=== PATIENT | male | born 1995 | race Caucasian/White ===

== ENCOUNTER 2017-09-05 07:48 | Emergency (ER) | payer BC ==
[2017-09-05] MEDS ORDERED: Ketorolac 30 MG/ML SDV IVPUSH ONE (08:31)
--- NOTE | 2017-09-05 08:37 | EDM.PDOC ---
ED HPI GENERAL MEDICAL PROBLEM - General Chief Complaint: Lower Extremity Injury/Pain Stated Complaint: RIGHT FOOT PAIN Time Seen by Provider: 09/05/17 07:52 Source of Information: Reports: Patient History Limitations: Reports: No Limitations - History of Present Illness INITIAL COMMENTS - FREE TEXT/NARRATIVE: History of present illness: []Patient noted having symptoms of athlete's foot on his right foot on August 20. He used [id number] Tinactin [place] which did not help and went to a walk-in clinic on 28 August. At time he was started on Diflucan which she completed 1 week of treatment. His are worse now with redness, swelling and pain radiating up into his calf to behind his knee. He has had chills and has open lesions on his foot that are draining. Review of systems: As per history of present illness and below otherwise all systems reviewed and negative. Past medical history: As per history of present illness and as reviewed below otherwise noncontributory. Surgical history: As per history of present illness and as reviewed below otherwise noncontributory. Social history: No reported history of drug or alcohol abuse. Family history: As per history of present illness and as reviewed below otherwise noncontributory. Physical exam: General: Well developed, well nourished in NAD HEENT: Atraumatic, normocephalic, pupils reactive, negative for conjunctival pallor or scleral icterus, mucous membranes moist, throat clear, neck supple, nontender, trachea midline. Lungs: Clear to auscultation, breath sounds equal bilaterally, chest nontender. Heart: S1S2, regular, negative for clicks, rubs, or JVD. Abdomen: Soft, nondistended, nontender. Negative for masses or hepatosplenomegaly. Negative for costovertebral tenderness. Pelvis: Stable nontender. Genitourinary: Deferred. Rectal: Deferred. Extremities: Right foot erythematous, edematous with multiple macerated areas that are crusted is brisk capillary refill, positive calf pain radiating to behind the knee. Neurovascular unremarkable. Neuro: Awake, alert, oriented. Cranial nerves II through XII unremarkable. Cerebellum unremarkable. Motor and sensory unremarkable throughout. Exam nonfocal. Diagnostics: []CBC normal, blood cultures, Doppler ultrasound negative for DVT Therapeutics: []Vancomycin, Toradol Impression: []Cellulitis right foot Plan: []Warm soaks, Levaquin as directed, Motrin for pain follow-up with primary care return if symptoms worsen or change Definitive disposition and diagnosis as appropriate pending reevaluation and review of above. Right Feet Pain Score (Numeric/FACES): 7 - Related Data Allergies Allergy/AdvReac Type Severity Reaction Status Date / Time Penicillins Allergy Airway Verified 09/05/17 08:03 Tightness Home Meds: Home Meds Levofloxacin [Levaquin] 500 mg PO DAILY #7 tab 09/05/17 [Rx] Non-Formulary Medication [NF Drug] 1 tab PO DAILY 09/05/17 [History] Past Medical History - Past Health History Medical/Surgical History: Denies Medical/Surgical History Social & Family History - Tobacco Use Smoking Status *Q: Current Every Day Smoker Years of Tobacco use: 10 Packs/Tins Daily: 1 - Caffeine Use Caffeine Use: Reports: Coffee, Energy Drinks - Recreational Drug Use Recreational Drug Use: No Review of Systems - Review of Systems Review Of Systems: ROS reveals no pertinent complaints other than HPI. ED EXAM, GENERAL - Physical Exam Exam: See Below (History of present illness) Course - Vital Signs Last Recorded V/S: Last Vital Signs Temp 97.9 F 09/05/17 08:01 Pulse 76 09/05/17 08:01 Resp 16 09/05/17 08:01 BP 130/88 09/05/17 08:01 Pulse Ox 99 09/05/17 08:01 - Orders/Labs/Meds Orders: Active Orders 24 hr Category Date Time Status CULTURE BLOOD [BC] Stat Lab 09/05/17 08:37 Received CULTURE BLOOD [BC] Stat Lab 09/05/17 09:01 Received Vancomycin [Vancocin] 1 gm Med 09/05/17 08:30 Active Sodium Chloride 0.9% [Normal Saline] 250 ml IV ONETIME Blood Culture x2 Reflex Set [OM.PC] Stat Oth 09/05/17 08:31 Ordered Medication Orders Vancomycin HCl 1 gm/ Sodium (Chloride) 250 mls @ 250 mls/hr IV ONETIME ONE Stop: 09/05/17 09:29 Last Admin: 09/05/17 09:07 Dose: 250 mls/hr Labs: Laboratory Tests 09/05/17 Range/Units 08:37 WBC 9.44 (4.0-11.0) K/uL RBC 4.83 (4.50-5.90) M/uL Hgb 14.7 (13.0-17.0) g/dL Hct 41.8 (38.0-50.0) % MCV 86.5 (80.0-98.0) fL MCH 30.4 (27.0-32.0) pg MCHC 35.2 (31.0-37.0) g/dL RDW Std Deviation 39.8 (28.0-62.0) fl RDW Coeff of Keeley 12 (11.0-15.0) % Plt Count 225 (150-400) K/uL MPV 9.30 (7.40-12.00) fL Neut % (Auto) 78.5 (48.0-80.0) % Lymph % (Auto) 13.3 L (16.0-40.0) % [place] % (Auto) 7.3 (0.0-15.0) % Eos % (Auto) 0.5 (0.0-7.0) % Baso % (Auto) 0.4 (0.0-1.5) % Neut # (Auto) 7.4 H (1.4-5.7) K/uL Lymph # (Auto) 1.3 (0.6-2.4) K/uL [place] # (Auto) 0.7 (0.0-0.8) K/uL Eos # (Auto) 0.1 (0.0-0.7) K/uL Baso # (Auto) 0.0 (0.0-0.1) K/uL Nucleated RBC % 0.0 /100WBC Nucleated RBCs # 0 K/uL Meds: Medications Generic Name Dose Route Start Last Admin Trade Name Freq PRN Reason Stop Dose Admin Vancomycin HCl 1 gm/ Sodium 250 mls @ 250 mls/hr 09/05/17 08:30 09/05/17 09: 07 Chloride IV 09/05/17 09:29 250 mls/hr ONETIME ONE Administration Discontinued Medications Generic Name Dose Route Start Last Admin Trade Name Freq PRN Reason Stop Dose Admin Ketorolac Tromethamine 30 mg 09/05/17 08:31 09/05/17 09:00 Toradol IVPUSH 09/05/17 08:32 30 mg ONETIME ONE Administration Departure - Departure Time of Disposition: 09:25 Disposition: Home, Self-Care 01 Condition: Good Clinical Impression: Cellulitis of right foot - Discharge Information *PRESCRIPTION DRUG MONITORING PROGRAM REVIEWED*: Not Applicable *COPY OF PRESCRIPTION DRUG MONITORING REPORT IN PATIENT PO: Not Applicable Prescriptions: Levofloxacin [Levaquin] 500 mg PO DAILY #7 tab Referrals: PCP,None [Primary Care Provider] - Forms: ED Department Discharge Additional Instructions: The following information is given to patients seen in the emergency department who are being discharged to home. This information is to outline your options for follow-up care. We provide all patients seen in our emergency department with a follow-up referral. The need for follow-up, as well as the timing and circumstances, are variable depending upon the specifics of your emergency department visit. If you don't have a primary care physician on staff, we will provide you with a referral. We always advise you to contact your personal physician following an emergency department visit to inform them of the circumstance of the visit and for follow-up with them and/or the need for any referrals to a consulting specialist. The emergency department will also refer you to a specialist when appropriate. This referral assures that you have the opportunity for follow-up care with a specialist. All of these measure are taken in an effort to provide you with optimal care, which includes your follow-up. Under all circumstances we always encourage you to contact your private physician who remains a resource for coordinating your care. When calling for follow-up care, please make the office aware that this follow-up is from your recent emergency room visit. If for any reason you are refused follow-up, please contact the [facility] Emergency Department at and asked to speak to the emergency department charge nurse. Levaquin as directed, Motrin for pain, warm soaks, follow-up with primary care is worsen or change. [facility] [address] [place] [id number] - My Orders Last 24 Hours: My Active Orders 09/05/17 08:30 Vancomycin [Vancocin] 1 gm Sodium Chloride 0.9% [Normal Saline] 250 ml IV ONETIME 09/05/17 08:31 Blood Culture x2 Reflex Set [OM.PC] Stat 09/05/17 08:37 CULTURE BLOOD [BC] Stat 09/05/17 09:01 CULTURE BLOOD [BC] Stat - Assessment/Plan Last 24 Hours: My Active Orders 09/05/17 08:30 Vancomycin [Vancocin] 1 gm Sodium Chloride 0.9% [Normal Saline] 250 ml IV ONETIME 09/05/17 08:31 Blood Culture x2 Reflex Set [OM.PC] Stat 09/05/17 08:37 CULTURE BLOOD [BC] Stat 09/05/17 09:01 CULTURE BLOOD [BC] Stat
--- NOTE | 2017-09-05 09:11 | US ---
ULTRASOUND EXAMINATION OF the right lower extremity WITH DOPPLER HISTORY: Pain FINDINGS: Examination of the right leg was performed from the groin to the calf region. All visualized segment s including common femoral, proximal greater saphenous, superficial femoral, popliteal and calf veins appear patent with good compressibility and augmentation. There is no evidence of deep vein thrombo sis. IMPRESSION: No evidence of a DVT.
== END 2017-09-05 10:17 | disposition home or self-care (01) ==
LOC: MW.ED 07:48
DX: L03.115 Cellulitis of right lower limb (principal); F17.210 Nicotine dependence, cigarettes, uncomplicated; Z88.0 Allergy status to penicillin; Z79.899 Other long term (current) drug therapy
CPT/HCPCS: 36415; 85025; 87040; 93971; 96365; 96375; 99284; J1885; J3370; J7050; 99283

== ENCOUNTER 2017-09-08 08:33 | Inpatient (IN) | payer BC ==
[2017-09-08] MEDS ORDERED: Sodium Chloride 0.9% 1,000 ML IV ONE (08:46)
[2017-09-08] MEDS ORDERED: Sodium Chloride 0.9% 10 ML Syringe FLUSH PRN (08:46)
[2017-09-08] MEDS ORDERED: Sodium Chloride 0.9% 2.5 ML Syringe FLUSH PRN (08:46)
[2017-09-08] MEDS ORDERED: Ketorolac 60 MG/2 ML SDV IM ONE (09:06)
[2017-09-08 10:14] LABS: CHLORIDE,CL 106 mmol/L (98-107); SODIUM,NA 139 mmol/L (136-148)
--- NOTE | 2017-09-08 10:50 | EDM.PDOC ---
ED HPI GENERAL MEDICAL PROBLEM - General Chief Complaint: Lower Extremity Injury/Pain Stated Complaint: right foot oozing fluid Time Seen by Provider: 09/08/17 08:56 Source of Information: Reports: Patient History Limitations: Reports: No Limitations - History of Present Illness INITIAL COMMENTS - FREE TEXT/NARRATIVE: History of present illness: []Patient has had history of right foot cellulitis and has been on Levaquin. This morning his foot started draining pus and he noted a fine bumpy rash on his arms. He also reports having a bad taste and dry mouth since he started Levaquin. Review of systems: As per history of present illness and below otherwise all systems reviewed and negative. Past medical history: As per history of present illness and as reviewed below otherwise noncontributory. Surgical history: As per history of present illness and as reviewed below otherwise noncontributory. Social history: No reported history of drug or alcohol abuse. Family history: As per history of present illness and as reviewed below otherwise noncontributory. Physical exam: General: Well developed, well nourished in NAD HEENT: Atraumatic, normocephalic, pupils reactive, negative for conjunctival pallor or scleral icterus, mucous membranes moist, throat clear, neck supple, nontender, trachea midline. Lungs: Clear to auscultation, breath sounds equal bilaterally, chest nontender. Heart: S1S2, regular, negative for clicks, rubs, or JVD. Abdomen: Soft, nondistended, nontender. Negative for masses or hepatosplenomegaly. Negative for costovertebral tenderness. Pelvis: Stable nontender. Genitourinary: Deferred. Rectal: Deferred. Extremities: Right foot with purulent drainage minimal edema and dark erythema ( this is improved since his last visit when I saw him)., negative for cords or calf pain. Neurovascular unremarkable. Neuro: Awake, alert, oriented. Cranial nerves II through XII unremarkable. Cerebellum unremarkable. Motor and sensory unremarkable throughout. Exam nonfocal. Diagnostics: []CBC normal, chemistry normal Therapeutics: [] Impression: []Failed outpatient cellulitis, foot abscess Plan: []Admit for IV antibiotics and observation further workup Definitive disposition and diagnosis as appropriate pending reevaluation and review of above. Right Feet Pain Score (Numeric/FACES): 6 - Related Data Allergies Allergy/AdvReac Type Severity Reaction Status Date / Time Penicillins Allergy Airway Verified 09/08/17 09:00 Tightness Home Meds: Home Meds Non-Formulary Medication [NF Drug] 1 tab PO DAILY 09/05/17 [History] levoFLOXacin [Levaquin] 500 mg PO DAILY #7 tab 09/05/17 [Rx] Levofloxacin [Levaquin] 500 mg PO 09/08/17 [History] Past Medical History - Past Health History Medical/Surgical History: Denies Medical/Surgical History - Infectious Disease History Infectious Disease History: Reports: None Social & Family History - Family History Family Medical History: Noncontributory - Caffeine Use Caffeine Use: Reports: Coffee - Alcohol Use Days Per Week of Alcohol Use: 2 Number of Drinks Per Day: 3 Total Drinks Per Week: 6 - Recreational Drug Use Recreational Drug Use: No Review of Systems - Review of Systems Review Of Systems: ROS reveals no pertinent complaints other than HPI. ED EXAM, GENERAL - Physical Exam Exam: See Below (See history of present illness) Course - Vital Signs Last Recorded V/S: Last Vital Signs Temp 97.7 F 09/08/17 09:02 Pulse 58 L 09/08/17 09:02 Resp 16 09/08/17 09:02 BP 124/63 09/08/17 09:02 Pulse Ox 98 09/08/17 09:02 - Orders/Labs/Meds Orders: Active Orders 24 hr Category Date Time Status CULTURE WOUND [RM] Stat Lab 09/08/17 09:05 Received Sodium Chloride 0.9% [Saline Flush] Med 09/08/17 08:46 Active 10 ml FLUSH ASDIRECTED PRN Sodium Chloride 0.9% [Saline Flush] Med 09/08/17 08:46 Active 2.5 ml FLUSH ASDIRECTED PRN Saline Lock Insert [OM.PC] Stat Oth 09/08/17 08:46 Ordered Medication Orders Sodium Chloride (Saline Flush) 10 ml FLUSH ASDIRECTED PRN PRN Reason: Keep Vein Open Last Admin: 09/08/17 09:34 Dose: 10 ml Sodium Chloride (Saline Flush) 2.5 ml FLUSH ASDIRECTED PRN PRN Reason: Keep Vein Open Last Admin: 09/08/17 09:35 Dose: 2.5 ml Labs: Laboratory Tests 07/19/18 07/19/18 07/19/18 Range/Units 09:32 09:32 09:32 WBC 5.23 (4.0-11.0) K/uL RBC 4.91 (4.50-5.90) M/uL Hgb 15.0 (13.0-17.0) g/dL Hct 42.0 (38.0-50.0) % MCV 85.5 (80.0-98.0) fL MCH 30.5 (27.0-32.0) pg MCHC 35.7 (31.0-37.0) g/dL RDW Std Deviation 38.6 (28.0-62.0) fl RDW Coeff of Keeley 12 (11.0-15.0) % Plt Count 263 (150-400) K/uL MPV 9.30 (7.40-12.00) fL Neut % (Auto) 62.0 (48.0-80.0) % Lymph % (Auto) 27.3 (16.0-40.0) % [place] % (Auto) 7.6 (0.0-15.0) % Eos % (Auto) 2.3 (0.0-7.0) % Baso % (Auto) 0.8 (0.0-1.5) % Neut # (Auto) 3.2 (1.4-5.7) K/uL Lymph # (Auto) 1.4 (0.6-2.4) K/uL [place] # (Auto) 0.4 (0.0-0.8) K/uL Eos # (Auto) 0.1 (0.0-0.7) K/uL Baso # (Auto) 0.0 (0.0-0.1) K/uL Nucleated RBC % 0.0 /100WBC Nucleated RBCs # 0 K/uL Lactate 0.8 (0.20-2.00) mmol/L Sodium 139 (136-148) mmol/L Potassium 3.9 (3.5-5.1) mmol/L Chloride 106 (98-107) mmol/L Carbon Dioxide 24.0 (21.0-32.0) mmol/L BUN 15 (7.0-18.0) mg/dL Creatinine 1.0 (0.8-1.3) mg/dL Est Cr Clr Drug Dosing 127.18 mL/min Estimated GFR (MDRD) > 60.0 ml/min Glucose 103 (74-106) mg/dL Calcium 9.3 (8.5-10.1) mg/dL Total Bilirubin 0.3 (0.2-1.0) mg/dL AST 25 (15-37) IU/L ALT 34 (14-63) IU/L Alkaline Phosphatase 79 (46-116) U/L Total Protein 7.7 (6.4-8.2) g/dL Albumin 3.5 (3.4-5.0) g/dL Globulin 4.2 H (2.0-3.5) g/dL Albumin/Globulin Ratio 0.8 L (1.3-2.8) Meds: Medications Generic Name Dose Route Start Last Admin Trade Name Freq PRN Reason Stop Dose Admin Sodium Chloride 10 ml 09/08/17 08:46 09/08/17 09:34 Saline Flush FLUSH 10 ml ASDIRECTED PRN Administration Keep Vein Open Sodium Chloride 2.5 ml 09/08/17 08:46 09/08/17 09:35 Saline Flush FLUSH 2.5 ml ASDIRECTED PRN Administration Keep Vein Open Discontinued Medications Generic Name Dose Route Start Last Admin Trade Name Freq PRN Reason Stop Dose Admin Sodium Chloride 1,000 mls @ 999 mls/hr 09/08/17 08:46 09/08/17 09:34 Normal Saline IV 09/08/17 09:46 999 mls/hr .Bolus ONE Administration Ketorolac Tromethamine 60 mg 09/08/17 09:06 09/08/17 09:34 Toradol IM 09/08/17 09:07 60 mg ONETIME ONE Administration Departure - Departure Time of Disposition: 10:58 Disposition: Refer to Observation Condition: Good Clinical Impression: Foot abscess, right - Discharge Information Referrals: PCP,None [Primary Care Provider] - Forms: ED Department Discharge - My Orders Last 24 Hours: My Active Orders 09/08/17 08:46 Sodium Chloride 0.9% [Saline Flush] 10 ml FLUSH ASDIRECTED PRN Sodium Chloride 0.9% [Saline Flush] 2.5 ml FLUSH ASDIRECTED PRN Saline Lock Insert [OM.PC] Stat 09/08/17 09:05 CULTURE WOUND [RM] Stat - Assessment/Plan Last 24 Hours: My Active Orders 09/08/17 08:46 Sodium Chloride 0.9% [Saline Flush] 10 ml FLUSH ASDIRECTED PRN Sodium Chloride 0.9% [Saline Flush] 2.5 ml FLUSH ASDIRECTED PRN Saline Lock Insert [OM.PC] Stat 09/08/17 09:05 CULTURE WOUND [RM] Stat
[2017-09-08] MEDS ORDERED: Ondansetron 4 MG/2 ML SDV IVPUSH PRN (15:23)
[2017-09-08] MEDS ORDERED: Acetaminophen 325 MG Tab PO PRN (15:23)
--- NOTE | 2017-09-08 15:57 | PCM.HP ---
<Franny Vanegas M - Last Filed: 09/08/17 16:49> H&P History of Present Illness - General Date of Service: 09/08/17 Admit Problem/Dx: Admission Diagnosis/Problem Admission Diagnosis/Problem Cellulitis and abscess Source of Information: Patient History Limitations: Reports: No Limitations - History of Present Illness Initial Comments - Free Text/Narative: This 21 year old male with no significant pmh presented to the ED today with redness and rash to his R foot. He has been treated with Levaquin as outpatient , but he feels the redness has not improved and it started draining today as well. He reports about a week ago he got off work and noticed his foot was a little red and swollen. He has been treating some athletes foot to this area as well. He was itching this area and wearing heavy work boots as well for long hours. He denies any injury to this area. No hx of this happening before and no history of MRSA. He denies fevers, chills, headache, neck pain, no abdominal pain, chest pain or SOB. He chews tobacco 1 tin every couple days, social alcohol use, and no recreational drug use. In the ED labwork all WNL. Wound culture obtained. Lactate 0.8. ED recommended admission for failed outpatient management of cellulitis and abscess of R foot. Right Feet Pain Score (Numeric/FACES): 4 - Related Data Allergies/Adverse Reactions: Allergies Allergy/AdvReac Type Severity Reaction Status Date / Time levofloxacin Allergy Rash Verified 09/08/17 16:47 Penicillins Allergy Airway Verified 09/08/17 09:00 Tightness Home Medications: Home Meds Non-Formulary Medication [NF Drug] 1 tab PO DAILY 09/05/17 [History] levoFLOXacin [Levaquin] 500 mg PO DAILY #7 tab 09/05/17 [Rx] Past Medical History - Past Health History Medical/Surgical History: Denies Medical/Surgical History Cardiovascular History: Reports: None. Denies: Hypertension Respiratory History: Reports: None. Denies: Asthma Gastrointestinal History: Reports: None Genitourinary History: Reports: None Neurological History: Reports: None. Denies: Headaches, Chronic, Migraines Endocrine/Metabolic History: Reports: None. Denies: Diabetes, Type II Dermatologic History: Reports: None - Infectious Disease History Infectious Disease History: Reports: None - Past Surgical History Cardiovascular Surgical History: Reports: None Respiratory Surgical History: Reports: None Male Surgical History: Reports: None Endocrine Surgical History: Reports: None Neurological Surgical History: Reports: None Musculoskeletal Surgical History: Reports: None Oncologic Surgical History: Reports: None Social & Family History - Family History Family Medical History: Noncontributory - Tobacco Use Smoking Status *Q: Current Every Day Smoker Tobacco Use Within Last Twelve Months: Smokeless Tobacco - Caffeine Use Caffeine Use: Reports: Coffee, Energy Drinks - Alcohol Use Days Per Week of Alcohol Use: 3 Number of Drinks Per Day: 3 Total Drinks Per Week: 9 Date of Last Drink: 09/02/17 Alcohol Use Frequency: Socially - Recreational Drug Use Recreational Drug Use: No - Living Situation & Occupation Living situation: Reports: Single Occupation: Employed H&P Review of Systems - Review of Systems: Review Of Systems: See Below General: Reports: No Symptoms. Denies: Fever, Chills, Malaise, Weakness HEENT: Reports: No Symptoms. Denies: Headaches, Sinus Congestion, Sore Throat Pulmonary: Reports: No Symptoms. Denies: Shortness of Breath, Wheezing, Cough, Sputum Cardiovascular: Reports: No Symptoms. Denies: Chest Pain, Orthopnea, Edema Gastrointestinal: Reports: No Symptoms. Denies: Abdominal Pain, Black Stool, Bloody Stool, Flatus, Nausea, Vomiting Genitourinary: Reports: No Symptoms. Denies: Dysuria, Frequency, Burning Musculoskeletal: Reports: No Symptoms Skin: Reports: Erythema, Wound (R foot) Psychiatric: Reports: No Symptoms Neurological: Reports: No Symptoms Hematologic/Lymphatic: Reports: No Symptoms Immunologic: Reports: No Symptoms Exam - Exam Exam: See Below - Vital Signs Vital Signs: Last Vital Signs Temp 96.3 F 09/08/17 12:50 Pulse 55 L 09/08/17 12:50 Resp 16 09/08/17 12:50 BP 133/66 09/08/17 12:50 Pulse Ox 99 09/08/17 12:50 Weight: 219 lb - Exam General: Alert, Oriented, Cooperative HEENT: Conjunctiva Clear, Pupils Equal, Pupils Reactive Lungs: Clear to Auscultation, Normal Respiratory Effort Cardiovascular: Regular Rate, Regular Rhythm, Normal S1, Normal S2. No: Systolic Murmur GI/Abdominal Exam: Normal Bowel Sounds, Soft, Non-Tender Back Exam: Normal Inspection, Full Range of Motion Extremities: Normal Inspection, Normal Range of Motion, Non-Tender, No Pedal Edema Skin: Wound (R foot, dorsum medial edge noted to have erythema and scant purulent drainage, with continued fluctuance. Surrounding scabbing from tinea pedis, which is noted to dorsum extending up bilaterally of R ankle.) Neuro Extensive - Mental Status: Alert, Oriented x3, Normal Mood/Affect Neuro Extensive - Motor, Sensory, Reflexes: CN II-XII Intact Psychiatric: Alert, Normal Affect, Normal Mood - Patient Data Lab Results Last 24 hrs: Laboratory Results - last 24 hr 09/08/17 09/08/17 09/08/17 Range/Units 09:32 09:32 09:32 WBC 5.23 (4.0-11.0) K/uL RBC 4.91 (4.50-5.90) M/uL Hgb 15.0 (13.0-17.0) g/dL Hct 42.0 (38.0-50.0) % MCV 85.5 (80.0-98.0) fL MCH 30.5 (27.0-32.0) pg MCHC 35.7 (31.0-37.0) g/dL RDW Std Deviation 38.6 (28.0-62.0) fl RDW Coeff of [place] 12 (11.0-15.0) % Plt Count 263 (150-400) K/uL MPV 9.30 (7.40-12.00) fL Neut % (Auto) 62.0 (48.0-80.0) % Lymph % (Auto) 27.3 (16.0-40.0) % [place] % (Auto) 7.6 (0.0-15.0) % Eos % (Auto) 2.3 (0.0-7.0) % Baso % (Auto) 0.8 (0.0-1.5) % Neut # (Auto) 3.2 (1.4-5.7) K/uL Lymph # (Auto) 1.4 (0.6-2.4) K/uL [place] # (Auto) 0.4 (0.0-0.8) K/uL Eos # (Auto) 0.1 (0.0-0.7) K/uL Baso # (Auto) 0.0 (0.0-0.1) K/uL Nucleated RBC % 0.0 /100WBC Nucleated RBCs # 0 K/uL Lactate 0.8 (0.20-2.00) mmol/L Sodium 139 (136-148) mmol/L Potassium 3.9 (3.5-5.1) mmol/L Chloride 106 (98-107) mmol/L Carbon Dioxide 24.0 (21.0-32.0) mmol/L BUN 15 (7.0-18.0) mg/dL Creatinine 1.0 (0.8-1.3) mg/dL Est Cr Clr Drug Dosing 127.18 mL/min Estimated GFR (MDRD) > 60.0 ml/min Glucose 103 (74-106) mg/dL Calcium 9.3 (8.5-10.1) mg/dL Total Bilirubin 0.3 (0.2-1.0) mg/dL AST 25 (15-37) IU/L ALT 34 (14-63) IU/L Alkaline Phosphatase 79 (46-116) U/L Total Protein 7.7 (6.4-8.2) g/dL Albumin 3.5 (3.4-5.0) g/dL Globulin 4.2 H (2.0-3.5) g/dL Albumin/Globulin Ratio 0.8 L (1.3-2.8) Result Diagrams: 09/08/17 09:32 09/08/17 09:32 *Q Meaningful Use (ADM) - VTE Risk Assess *Q Each Risk Factor Represents 1 Point: None Total Score 1 Point Risk Factors: 0 Each Risk Factor Represents 2 Points: None Total Score 2 Point Risk Factors: 0 Each Risk Factor Represents 3 Points: None Total Score 3 Point Risk Factors: 0 Each Risk Factor Represents 5 Points: None Total Score 5 Point Risk Factors: 0 Venous Thromboembolism Risk Factor Score *Q: 0 - Problem List (1) Foot abscess, right SNOMED Code(s): 503352861 ICD Code: L02.611 - CUTANEOUS ABSCESS OF RIGHT FOOT Status: Acute Current Visit: Yes (2) Cellulitis of right foot SNOMED Code(s): 099851464 ICD Code: L03.115 - CELLULITIS OF RIGHT LOWER LIMB Status: Acute Current Visit: No (3) Tobacco abuse SNOMED Code(s): 514033876 ICD Code: Z72.0 - TOBACCO USE Status: Acute Current Visit: Yes (4) Tobacco abuse counseling SNOMED Code(s): 155407708, 467009192, 037757910 ICD Code: Z71.6 - TOBACCO ABUSE COUNSELING Status: Acute Current Visit: Yes Problem List Initiated/Reviewed/Updated: Yes Orders Last 24hrs: Active Orders 24 hr Category Date Time Status Patient Status [ADT] Stat ADT 09/08/17 11:50 Active Intake and Output [RC] QSHIFT Care 09/08/17 15:24 Ordered Oxygen Therapy [RC] PRN Care 09/08/17 15:23 Ordered Up ad Danna [RC] ASDIRECTED Care 09/08/17 15:23 Ordered VTE/DVT Education [RC] PER UNIT ROUTINE Care 09/08/17 15:23 Ordered Vital Signs [RC] Q4H Care 09/08/17 15:23 Ordered Regular Diet [DIET] Diet 09/08/17 Dinner Ordered BASIC METABOLIC PANEL,BMP [CHEM] AM Lab 09/09/17 05:11 Ordered CBC WITH AUTO DIFF [HEME] AM Lab 09/09/17 05:11 Ordered CULTURE WOUND [RM] Stat Lab 09/08/17 09:05 Received VANCOMYCIN TROUGH [CHEM] Routine Lab 09/09/17 15:00 Ordered Acetaminophen [Tylenol] Med 09/08/17 15:23 Ordered 650 mg PO Q4H PRN Acetaminophen/HYDROcodone [[place] 325-5 MG] Med 09/08/17 15:23 Ordered 1 - 2 tab PO Q4H PRN Ondansetron [Zofran] Med 09/08/17 15:23 Ordered 4 mg IVPUSH Q4H PRN Sodium Chloride 0.9% [Saline Flush] Med 09/08/17 08:46 Active 10 ml FLUSH ASDIRECTED PRN Sodium Chloride 0.9% [Saline Flush] Med 09/08/17 08:46 Active 2.5 ml FLUSH ASDIRECTED PRN Vancomycin 1,250 mg Med 09/08/17 16:00 Active Sodium Chloride 0.9% [Normal Saline] 250 ml IV Q8H Vancomycin Pharmacy to Dose [Pharmacy to Dose - Med 09/08/17 15:30 Ordered Vancomycin] 1 dose .XX ASDIRECTED Saline Lock Insert [OM.PC] Stat Oth 09/08/17 08:46 Ordered Sequential Compression Device [OM.PC] Per Unit Routine Oth 09/08/17 15:24 Ordered Resuscitation Status Routine Resus Stat 09/08/17 15:23 Ordered Medication Orders Acetaminophen (Tylenol) 650 mg PO Q4H PRN PRN Reason: Pain Hydrocodone Bitart/Acetaminophen ([place] 325-5 Mg) 1 - 2 tab PO Q4H PRN PRN Reason: Pain Vancomycin HCl 1,250 mg/ (Sodium Chloride) 250 mls @ 166.667 mls/hr IV Q8H PRADEEP Ondansetron HCl (Zofran) 4 mg IVPUSH Q4H PRN PRN Reason: Nausea Sodium Chloride (Saline Flush) 10 ml FLUSH ASDIRECTED PRN PRN Reason: Keep Vein Open Last Admin: 09/08/17 09:34 Dose: 10 ml Sodium Chloride (Saline Flush) 2.5 ml FLUSH ASDIRECTED PRN PRN Reason: Keep Vein Open Last Admin: 09/08/17 09:35 Dose: 2.5 ml Vancomycin HCl (Pharmacy To Dose - Vancomycin) 1 dose .XX ASDIRECTED [facility] Assessment/Plan Comment:: This 21 year old male admitted with R foot cellulitis with abscess 1. R foot cellulitis and abscess: Appears very superficial. Wound culture pending. Afebrile. No leukocytosis. Will treat with Vancomycin. Consult Dr Escobar for I&D. 2. Foot rash: Tinea pedis vs eczema. Will Fluconazole 150 mg once, will recommend weekly for up to 6 weeks. Encouraged to change work boots and and foot powders which prevent moisture. VTE prophylaxis: SCDs Dispo: 2-3 days pending improvement. <Jared Arevalo - Last Filed: 09/08/17 20:47> H&P History of Present Illness - General Admit Problem/Dx: Admission Diagnosis/Problem Admission Diagnosis/Problem Cellulitis and abscess Exam - Vital Signs Vital Signs: Last Vital Signs Temp 97.6 F 09/08/17 16:00 Pulse 49 L 09/08/17 16:00 Resp 20 09/08/17 16:00 BP 96/47 L 09/08/17 16:00 Pulse Ox 97 09/08/17 16:00 - Patient Data Lab Results Last 24 hrs: Laboratory Results - last 24 hr 07/19/18 07/19/18 07/19/18 Range/Units 09:32 09:32 09:32 WBC 5.23 (4.0-11.0) K/uL RBC 4.91 (4.50-5.90) M/uL Hgb 15.0 (13.0-17.0) g/dL Hct 42.0 (38.0-50.0) % MCV 85.5 (80.0-98.0) fL MCH 30.5 (27.0-32.0) pg MCHC 35.7 (31.0-37.0) g/dL RDW Std Deviation 38.6 (28.0-62.0) fl RDW Coeff of [place] 12 (11.0-15.0) % Plt Count 263 (150-400) K/uL MPV 9.30 (7.40-12.00) fL Neut % (Auto) 62.0 (48.0-80.0) % Lymph % (Auto) 27.3 (16.0-40.0) % [place] % (Auto) 7.6 (0.0-15.0) % Eos % (Auto) 2.3 (0.0-7.0) % Baso % (Auto) 0.8 (0.0-1.5) % Neut # (Auto) 3.2 (1.4-5.7) K/uL Lymph # (Auto) 1.4 (0.6-2.4) K/uL [place] # (Auto) 0.4 (0.0-0.8) K/uL Eos # (Auto) 0.1 (0.0-0.7) K/uL Baso # (Auto) 0.0 (0.0-0.1) K/uL Nucleated RBC % 0.0 /100WBC Nucleated RBCs # 0 K/uL Lactate 0.8 (0.20-2.00) mmol/L Sodium 139 (136-148) mmol/L Potassium 3.9 (3.5-5.1) mmol/L Chloride 106 (98-107) mmol/L Carbon Dioxide 24.0 (21.0-32.0) mmol/L BUN 15 (7.0-18.0) mg/dL Creatinine 1.0 (0.8-1.3) mg/dL Est Cr Clr Drug Dosing 127.18 mL/min Estimated GFR (MDRD) > 60.0 ml/min Glucose 103 (74-106) mg/dL Calcium 9.3 (8.5-10.1) mg/dL Total Bilirubin 0.3 (0.2-1.0) mg/dL AST 25 (15-37) IU/L ALT 34 (14-63) IU/L Alkaline Phosphatase 79 (46-116) U/L Total Protein 7.7 (6.4-8.2) g/dL Albumin 3.5 (3.4-5.0) g/dL Globulin 4.2 H (2.0-3.5) g/dL Albumin/Globulin Ratio 0.8 L (1.3-2.8) Result Diagrams: 09/08/17 09:32 09/08/17 09:32 Orders Last 24hrs: Active Orders 24 hr Category Date Time Status Patient Status [ADT] Stat ADT 09/08/17 11:50 Active Communication Order [RC] PRN Care 09/08/17 16:12 Active Intake and Output [RC] QSHIFT Care 09/08/17 15:24 Active Notify Provider Consults [RC] ASDIRECTED Care 09/08/17 16:48 Active Oxygen Therapy [RC] PRN Care 09/08/17 15:23 Active Up ad Danna [RC] ASDIRECTED Care 09/08/17 15:23 Active VTE/DVT Education [RC] PER UNIT ROUTINE Care 09/08/17 15:23 Active Vital Signs [RC] Q4H Care 09/08/17 15:23 Active Consult to Physician [CONS] Routine Cons 09/08/17 16:46 Active Regular Diet [DIET] Diet 09/08/17 Dinner Active BASIC METABOLIC PANEL,BMP [CHEM] AM Lab 09/09/17 05:11 Ordered CBC WITH AUTO DIFF [HEME] AM Lab 09/09/17 05:11 Ordered CULTURE WOUND [RM] Stat Lab 09/08/17 09:05 Received VANCOMYCIN TROUGH [CHEM] Routine Lab 09/09/17 15:00 Ordered Acetaminophen [Tylenol] Med 09/08/17 15:23 Active 650 mg PO Q4H PRN Acetaminophen/HYDROcodone [[place] 325-5 MG] Med 09/08/17 15:23 Active 1 - 2 tab PO Q4H PRN Ondansetron [Zofran] Med 09/08/17 15:23 Active 4 mg IVPUSH Q4H PRN Sodium Chloride 0.9% [Saline Flush] Med 09/08/17 08:46 Active 10 ml FLUSH ASDIRECTED PRN Sodium Chloride 0.9% [Saline Flush] Med 09/08/17 08:46 Active 2.5 ml FLUSH ASDIRECTED PRN Vancomycin 1,250 mg Med 09/08/17 16:00 Active Sodium Chloride 0.9% [Normal Saline] 250 ml IV Q8H Vancomycin Pharmacy to Dose [Pharmacy to Dose - Med 09/08/17 15:30 Active Vancomycin] 1 dose .XX ASDIRECTED Saline Lock Insert [OM.PC] Stat Oth 09/08/17 08:46 Ordered Sequential Compression Device [OM.PC] Per Unit Routine Oth 09/08/17 15:24 Ordered Resuscitation Status Routine Resus Stat 09/08/17 15:23 Ordered Medication Orders Acetaminophen (Tylenol) 650 mg PO Q4H PRN PRN Reason: Pain Hydrocodone Bitart/Acetaminophen ([place] 325-5 Mg) 1 - 2 tab PO Q4H PRN PRN Reason: Pain Vancomycin HCl 1,250 mg/ (Sodium Chloride) 250 mls @ 166.667 mls/hr IV Q8H [facility] Last Admin: 09/08/17 17:07 Dose: 166.667 mls/hr Ondansetron HCl (Zofran) 4 mg IVPUSH Q4H PRN PRN Reason: Nausea Sodium Chloride (Saline Flush) 10 ml FLUSH ASDIRECTED PRN PRN Reason: Keep Vein Open Last Admin: 09/08/17 09:34 Dose: 10 ml Sodium Chloride (Saline Flush) 2.5 ml FLUSH ASDIRECTED PRN PRN Reason: Keep Vein Open Last Admin: 09/08/17 09:35 Dose: 2.5 ml Vancomycin HCl (Pharmacy To Dose - Vancomycin) 1 dose .XX ASDIRECTED [facility] Assessment/Plan Comment:: patient does not have thickening of nails and no erythema between the toes. He also has some eczematous papules on the hands , DD eczema vs tinea , will start him on solumedrol 60 mg iv one dose tonight and triamcinolone 0.1% BID on the hands , will reevaluate in the morning. Tinea pedis is still a possibility ,but I would more incline to an infected eczema .Will send skin scraping to the lab, continue fluconazole .
[2017-09-08] MEDS ORDERED: Fluconazole 150 MG Tab PO ONE (16:19)
[2017-09-08] MEDS ORDERED: methylPREDNISolone Sodium Succinate 125 MG/2 ML SDV IVPUSH ONE (16:45)
[2017-09-08] MEDS ORDERED: Bupivacaine 0.25% 10 ML SDV INJECT ONE (17:52)
[2017-09-08] MEDS ORDERED: Lidocaine 1% 20 ML MDV INJECT ONE (17:52)
[2017-09-08] MEDS ORDERED: Lidocaine 1% 50 ML MDV INJECT ONE (18:15)
[2017-09-08] MEDS: Triamcinolone Acetonide 0.1% Crm 15 GM Tube TOP SCH (21:00)
--- NOTE | 2017-09-08 21:24 | PCM.CONS ---
H&P History of Present Illness - General Date of Service: 09/08/17 Admit Problem/Dx: Admission Diagnosis/Problem Admission Diagnosis/Problem Cellulitis and abscess Source of Information: Patient History Limitations: Reports: No Limitations - History of Present Illness Symptom Onset Date: 09/04/17 Duration of Symptoms: Reports: Day(s): Location: Reports: Lower Extremity, Right Quality: Reports: Pressure, Throbbing Improves with: Reports: None Worsens with: Reports: Movement Context: Reports: Other (itching and scratching) Associated Symptoms: Reports: No Other Symptoms Right Feet Pain Score (Numeric/FACES): 4 - Related Data Allergies/Adverse Reactions: Allergies Allergy/AdvReac Type Severity Reaction Status Date / Time levofloxacin Allergy Rash Verified 09/08/17 16:47 Penicillins Allergy Airway Verified 09/08/17 09:00 Tightness Home Medications: Home Meds Non-Formulary Medication [NF Drug] 1 tab PO DAILY 09/05/17 [History] levoFLOXacin [Levaquin] 500 mg PO DAILY #7 tab 09/05/17 [Rx] Past Medical History - Past Health History Medical/Surgical History: Denies Medical/Surgical History Cardiovascular History: Reports: None. Denies: Hypertension Respiratory History: Reports: None. Denies: Asthma Gastrointestinal History: Reports: None Genitourinary History: Reports: None Neurological History: Reports: None. Denies: Headaches, Chronic, Migraines Endocrine/Metabolic History: Reports: None. Denies: Diabetes, Type II Dermatologic History: Reports: None - Infectious Disease History Infectious Disease History: Reports: None - Past Surgical History Cardiovascular Surgical History: Reports: None Respiratory Surgical History: Reports: None Male Surgical History: Reports: None Endocrine Surgical History: Reports: None Neurological Surgical History: Reports: None Musculoskeletal Surgical History: Reports: None Oncologic Surgical History: Reports: None Social & Family History - Family History Family Medical History: Noncontributory - Tobacco Use Smoking Status *Q: Current Every Day Smoker - Caffeine Use Caffeine Use: Reports: Coffee, Energy Drinks - Alcohol Use Days Per Week of Alcohol Use: 3 Number of Drinks Per Day: 3 Total Drinks Per Week: 9 Date of Last Drink: 09/02/17 - Recreational Drug Use Recreational Drug Use: No - Living Situation & Occupation Living situation: Reports: Single Occupation: Employed H&P Review of Systems - Review of Systems: Review Of Systems: See Below General: Reports: No Symptoms HEENT: Reports: No Symptoms Pulmonary: Reports: No Symptoms Cardiovascular: Reports: No Symptoms Gastrointestinal: Reports: No Symptoms Genitourinary: Reports: No Symptoms Musculoskeletal: Reports: No Symptoms Skin: Reports: No Symptoms Psychiatric: Reports: No Symptoms Neurological: Reports: No Symptoms Hematologic/Lymphatic: Reports: No Symptoms Immunologic: Reports: No Symptoms Exam - Exam Exam: See Below - Vital Signs Vital Signs: Last Vital Signs Temp 36.4 C 09/08/17 16:00 Pulse 49 L 09/08/17 16:00 Resp 20 09/08/17 16:00 BP 96/47 L 09/08/17 16:00 Pulse Ox 97 09/08/17 16:00 Weight: 99.337 kg - Exam General: Alert, Oriented, Cooperative Peripheral Pulses: 2+: Posterior Tibial (R), Dorsalis Pedis (R) Skin: Warm, Dry, Rash Skin Alteration Location (Drawings Not To Scale): 1 - scattered plaques on medial dorsal and lateral aspect of right foot. Raised 1.0 cm pustule on dorsal medial mid right foot - Patient Data Lab Results Last 24 hrs: Laboratory Results - last 24 hr 09/08/17 09/08/17 09/08/17 Range/Units 09:32 09:32 09:32 WBC 5.23 (4.0-11.0) K/uL RBC 4.91 (4.50-5.90) M/uL Hgb 15.0 (13.0-17.0) g/dL Hct 42.0 (38.0-50.0) % MCV 85.5 (80.0-98.0) fL MCH 30.5 (27.0-32.0) pg MCHC 35.7 (31.0-37.0) g/dL RDW Std Deviation 38.6 (28.0-62.0) fl RDW Coeff of [place]ee[place] 12 (11.0-15.0) % Plt Count 263 (150-400) K/uL MPV 9.30 (7.40-12.00) fL Neut % (Auto) 62.0 (48.0-80.0) % Lymph % (Auto) 27.3 (16.0-40.0) % [place] % (Auto) 7.6 (0.0-15.0) % Eos % (Auto) 2.3 (0.0-7.0) % Baso % (Auto) 0.8 (0.0-1.5) % Neut # (Auto) 3.2 (1.4-5.7) K/uL Lymph # (Auto) 1.4 (0.6-2.4) K/uL [place] # (Auto) 0.4 (0.0-0.8) K/uL Eos # (Auto) 0.1 (0.0-0.7) K/uL Baso # (Auto) 0.0 (0.0-0.1) K/uL Nucleated RBC % 0.0 /100WBC Nucleated RBCs # 0 K/uL Lactate 0.8 (0.20-2.00) mmol/L Sodium 139 (136-148) mmol/L Potassium 3.9 (3.5-5.1) mmol/L Chloride 106 (98-107) mmol/L Carbon Dioxide 24.0 (21.0-32.0) mmol/L BUN 15 (7.0-18.0) mg/dL Creatinine 1.0 (0.8-1.3) mg/dL Est Cr Clr Drug Dosing 127.18 mL/min Estimated GFR (MDRD) > 60.0 ml/min Glucose 103 (74-106) mg/dL Calcium 9.3 (8.5-10.1) mg/dL Total Bilirubin 0.3 (0.2-1.0) mg/dL AST 25 (15-37) IU/L ALT 34 (14-63) IU/L Alkaline Phosphatase 79 (46-116) U/L Total Protein 7.7 (6.4-8.2) g/dL Albumin 3.5 (3.4-5.0) g/dL Globulin 4.2 H (2.0-3.5) g/dL Albumin/Globulin Ratio 0.8 L (1.3-2.8) Result Diagrams: 09/08/17 09:32 09/08/17 09:32 Consult PN Assessment/Plan Procedures: Procedures BLOOD CULTURE FOR BACTERIA (09/05/17) COMPLETE CBC W/AUTO DIFF WBC (09/05/17) EMERGENCY DEPT VISIT (09/05/17) EXTREMITY STUDY (09/05/17) ROUTINE VENIPUNCTURE (09/05/17) THER/PROPH/DIAG IV INF INIT (09/05/17) TX/PRO/DX INJ NEW DRUG ADDON (09/05/17) (1) Foot abscess, right SNOMED Code(s): 195402911 Code(s): L02.611 - CUTANEOUS ABSCESS OF RIGHT FOOT Priority: Medium Current Visit: Yes Onset Date: ~09/04/17 Problem List Initiated/Reviewed/Updated: Yes My Orders Last 24 Hours: My Active Orders 09/08/17 18:35 CULTURE ANAEROBIC [RM] Routine CULTURE WOUND [RM] Routine Plan: 1. I examined the patient as he rested comfortably in his bed. 2. I explained to patient that an incision and drainage of the infected abscess was necessary and could be done immediately at bedside under local anesthesia. 3. All patient questions were answered and written consent obtained and placed in patient chart. 4. Incision and drainage peformed at bedside - details in operative report. Patient tolerated local anesthesia and procedure well with no complications. 5. Swab cultures obtained from deepest area of undermined skin. 6. Patient is OK for discharge from Podiatry standpoint tomorrow following dressing change. Packing will need to be removed and steristrips applied at dressing change tomorrow. Wound care orders are being entered. I suggest patient be discharged on oral antibiotic for one week. 7. Patient to followup with me in my office next week and should call for appointment. Thank you for allowing me to participate in the care of your patient.
[2017-09-09] MEDS: Acetaminophen/HYDROcodone 325-5 MG Tab PO PRN ×2 (01:34→08:28)
[2017-09-09 06:34] LABS: CHLORIDE,CL 105 mmol/L (98-107); SODIUM,NA 138 mmol/L (136-148)
[2017-09-09] MEDS: Triamcinolone Acetonide 0.1% Crm 15 GM Tube TOP SCH (08:08)
[2017-09-09] MEDS ORDERED: Clindamycin HCl 150 MG Cap PO ONE (09:07)
--- NOTE | 2017-09-09 09:54 | PCM.DCSUM1 ---
Discharge Summary - Hospital Course Brief History: This 21 year old male with no significant pmh presented to the ED today with redness and rash to his R foot. He has been treated with Levaquin as outpatient, but he feels the redness has not improved and it started draining today as well. He reports about a week ago he got off work and noticed his foot was a little red and swollen. He has been treating some athletes foot to this area as well. He was itching this area and wearing heavy work boots as well for long hours. He denies any injury to this area. No hx of this happening before and no history of MRSA. He denies fevers, chills, headache, neck pain, no abdominal pain, chest pain or SOB. He chews tobacco 1 tin every couple days, social alcohol use, and no recreational drug use. In the ED labwork all WNL. Wound culture obtained. Lactate 0.8. ED recommended admission for failed outpatient management of cellulitis and abscess of R foot. Diagnosis: Stroke: No - Discharge Data Discharge Date: 09/09/17 Discharge Disposition: Home, Self-Care 01 Condition: Stable - Discharge Diagnosis/Problem(s) (1) Foot abscess, right SNOMED Code(s): 083060387 ICD Code: L02.611 - CUTANEOUS ABSCESS OF RIGHT FOOT Status: Acute Priority: Medium Current Visit: Yes Onset Date: ~09/04/17 (2) Cellulitis of right foot SNOMED Code(s): 397643004 ICD Code: L03.115 - CELLULITIS OF RIGHT LOWER LIMB Status: Acute Current Visit: No (3) Tobacco abuse SNOMED Code(s): 447748987 ICD Code: Z72.0 - TOBACCO USE Status: Acute Current Visit: Yes (4) Tobacco abuse counseling SNOMED Code(s): 491062707, 336320048, 691943567 ICD Code: Z71.6 - TOBACCO ABUSE COUNSELING Status: Acute Current Visit: Yes - Patient Summary/Data Consults: Consultations 09/08/17 16:46 Consult to Physician [CONS] Routine 09/08/17 17:09 Consult to Physician [CONS] Routine - Patient Instructions Diet: Regular Diet as Tolerated Activity: No Strenuous Activities, Rest and Relax Today Driving: Do Not Drive (No driving when taking Narcotics) Showering/Bathing: May Shower, No Tub Bathing/Swimming Wound/Incision Care: Keep Operative Site/Wound Site Clean and Dry Notify Provider of: Fever, Increased Pain, Swelling and Redness Other/Special Instructions: Change dressing every other day with simple dry dressing. Leave steristrip in place today. No work until seen by Dr Nelson. - Discharge Plan *PRESCRIPTION DRUG MONITORING PROGRAM REVIEWED*: Not Applicable *COPY OF PRESCRIPTION DRUG MONITORING REPORT IN PATIENT PO: Not Applicable Prescriptions/Med Rec: Acetaminophen/HYDROcodone [[place] 325-5 MG] 1 - 2 tab PO Q4H PRN #10 tablet PRN Reason: Pain Clindamycin HCl 300 mg PO QID #40 capsule Home Medications: Home Meds Acetaminophen/HYDROcodone [[place] 325-5 MG] 1 - 2 tab PO Q4H PRN #10 tablet 09/09 [Rx] Clindamycin HCl 300 mg PO QID #40 capsule 09/09/17 [Rx] Triamcinolone Acetonide [Triamcinolone Acetonide 0.1% Crm] 0 gm TOP BID tube [Rx] Forms: ED Department Discharge Referrals: PCP,None [Primary Care Provider] - Jaspal Nelson DPM [Physician] - (Patient requests Tuesday Call for follow up [phone] ) - Discharge Summary/Plan Comment DC Time >30 min.: No Discharge Summary/Plan Comment: Discharge Diagnoses: R Foot abscess and cellulitis Heidi Smith was admitted and treated with vancomycin. No noted leukocytosis. Dr. Escobar was initially consulted for possible I&D, but recommended Podiatry see patient. Dr Nelson was able to assess patient and performed bedside I&D. Labs continue to be stable today. redness is much better and wound is clean with no further purulent drainage. Dr Nelson will follow up with Patient next week. Dressing change instructions provided. He will be placed on Clindamycin for 10 more days. Cultures pending will be in touch with patient if antibiotics are needed to be changed. He was given one dose of Steroids for possible eczema and given Triamcinolone cream to be placed on feet and hand eczema. He is to return to clinic or ED if concerns should arise. - General Info Date of Service: 09/09/17 Admission Dx/Problem (Free Text: Admission Diagnosis/Problem Admission Diagnosis/Problem Cellulitis and abscess Subjective Update: Feeling good this morning, pain tolerable. No fevers or chills. No chest pain or SOB. - Review of Systems General: Reports: No Symptoms. Denies: Fever, Weakness, Fatigue HEENT: Reports: No Symptoms. Denies: Headaches, Sore Throat, Visual Changes Pulmonary: Reports: No Symptoms. Denies: Shortness of Breath Cardiovascular: Reports: No Symptoms. Denies: Chest Pain Gastrointestinal: Reports: No Symptoms. Denies: Abdominal Pain, Nausea, Vomiting Skin: Reports: Rash (improving.) - Patient Data Vitals - Most Recent: Last Vital Signs Temp 98 F 09/09/17 08:00 Pulse 74 09/09/17 08:00 Resp 16 09/09/17 08:00 BP 135/81 09/09/17 08:00 Pulse Ox 100 09/09/17 08:00 Weight - Most Recent: 99.337 kg I&O - Last 24 hours: Intake & Output 09/08/17 09/09/17 09/09/17 22:59 06:59 14:59 Intake Total 1000 Balance 1000 Lab Results - Last 24 hrs: Laboratory Results - last 24 hr 09/08/17 09/09/17 09/09/17 Range/Units 09:32 05:53 05:53 WBC 9.18 (4.0-11.0) K/uL RBC 4.98 (4.50-5.90) M/uL Hgb 15.0 (13.0-17.0) g/dL Hct 42.8 (38.0-50.0) % MCV 85.9 (80.0-98.0) fL MCH 30.1 (27.0-32.0) pg MCHC 35.0 (31.0-37.0) g/dL RDW Std Deviation 37.8 (28.0-62.0) fl RDW Coeff of [place] 12 (11.0-15.0) % Plt Count 298 (150-400) K/uL MPV 9.30 (7.40-12.00) fL Neut % (Auto) 92.9 H (48.0-80.0) % Lymph % (Auto) 6.2 L (16.0-40.0) % [place] % (Auto) 0.9 (0.0-15.0) % Eos % (Auto) 0.0 (0.0-7.0) % Baso % (Auto) 0.0 (0.0-1.5) % Neut # (Auto) 8.5 H (1.4-5.7) K/uL Lymph # (Auto) 0.6 (0.6-2.4) K/uL [place] # (Auto) 0.1 (0.0-0.8) K/uL Eos # (Auto) 0.0 (0.0-0.7) K/uL Baso # (Auto) 0.0 (0.0-0.1) K/uL Nucleated RBC % 0.0 /100WBC Nucleated RBCs # 0 K/uL Sodium 139 138 (136-148) mmol/L Potassium 3.9 5.1 (3.5-5.1) mmol/L Chloride 106 105 (98-107) mmol/L Carbon Dioxide 24.0 23.8 (21.0-32.0) mmol/L BUN 15 18 (7.0-18.0) mg/dL Creatinine 1.0 1.1 (0.8-1.3) mg/dL Est Cr Clr Drug Dosing 127.18 115.62 mL/min Estimated GFR (MDRD) > 60.0 > 60.0 ml/min Glucose 103 145 H (74-106) mg/dL Calcium 9.3 9.5 (8.5-10.1) mg/dL Total Bilirubin 0.3 (0.2-1.0) mg/dL AST 25 (15-37) IU/L ALT 34 (14-63) IU/L Alkaline Phosphatase 79 (46-116) U/L Total Protein 7.7 (6.4-8.2) g/dL Albumin 3.5 (3.4-5.0) g/dL Globulin 4.2 H (2.0-3.5) g/dL Albumin/Globulin Ratio 0.8 L (1.3-2.8) Med Orders - Current: Current Medications Acetaminophen (Tylenol) 650 mg PO Q4H PRN PRN Reason: Pain Hydrocodone Bitart/Acetaminophen ([place] 325-5 Mg) 1 - 2 tab PO Q4H PRN PRN Reason: Pain Last Admin: 09/09/17 08:28 Dose: 2 tab Vancomycin HCl 1,250 mg/ (Sodium Chloride) 250 mls @ 166.667 mls/hr IV Q8H PRADEEP Last Admin: 09/09/17 08:07 Dose: 166.667 mls/hr Ondansetron HCl (Zofran) 4 mg IVPUSH Q4H PRN PRN Reason: Nausea Sodium Chloride (Saline Flush) 10 ml FLUSH ASDIRECTED PRN PRN Reason: Keep Vein Open Last Admin: 09/08/17 09:34 Dose: 10 ml Sodium Chloride (Saline Flush) 2.5 ml FLUSH ASDIRECTED PRN PRN Reason: Keep Vein Open Last Admin: 09/08/17 09:35 Dose: 2.5 ml Triamcinolone Acetonide (Triamcinolone Acetonide 0.1% Crm) 0 gm TOP BID PRADEEP Last Admin: 09/09/17 08:08 Dose: 1 applic Vancomycin HCl (Pharmacy To Dose - Vancomycin) 1 dose .XX ASDIRECTED PRADEEP Discontinued Medications Bupivacaine HCl (Sensorcaine-Mpf 0.25%) 10 ml INJECT ONETIME ONE Stop: 09/08/17 17:53 Last Admin: 09/08/17 18:44 Dose: Not Given Clindamycin HCl (Cleocin) 300 mg PO ONETIME ONE Stop: 09/09/17 09:08 Last Admin: 09/09/17 09:35 Dose: 300 mg Fluconazole (Diflucan) 150 mg PO ONETIME ONE Stop: 09/08/17 16:20 Last Admin: 09/08/17 17:07 Dose: 150 mg Sodium Chloride (Normal Saline) 1,000 mls @ 999 mls/hr IV .Bolus ONE Stop: 09/08/17 09:46 Last Admin: 09/08/17 09:34 Dose: 999 mls/hr Ketorolac Tromethamine (Toradol) 60 mg IM ONETIME ONE Stop: 09/08/17 09:07 Last Admin: 09/08/17 09:34 Dose: 60 mg Lidocaine HCl (Xylocaine 1%) 20 ml INJECT ONETIME ONE Stop: 09/08/17 17:53 Last Admin: 09/08/17 18:44 Dose: Not Given Lidocaine HCl (Xylocaine 1%) 20 ml INJECT ONETIME ONE Stop: 09/08/17 18:16 Last Admin: 09/08/17 18:43 Dose: 20 ml Methylprednisolone Sodium Succinate (Solu-Medrol) 60 mg IVPUSH ONETIME ONE Stop: 09/08/17 16:46 Last Admin: 09/08/17 17:06 Dose: 60 mg - Exam Quality Assessment: Denies: Supplemental Oxygen, DVT Prophylaxis General: Reports: Alert, Oriented, Cooperative Neck: Reports: Supple, Trachea Midline Lungs: Reports: Clear to Auscultation, Normal Respiratory Effort Cardiovascular: Reports: Regular Rate, Regular Rhythm Wound/Incisions: Reports: No Drainage, Erythema Improving, Other (no further purulent drainage when packing removed. New dressing applied per Dr Nelson recommendations per nursing) Neurological: Reports: No New Focal Deficit Psy/Mental Status: Reports: Alert, Normal Affect, Normal Mood
--- NOTE | 2017-09-12 06:32 | OR ---
SURGEON: Jaspal Nelson DPM DATE OF PROCEDURE: 09/08/2017 PREOPERATIVE DIAGNOSIS: Infected abscess, right foot. POSTOPERATIVE DIAGNOSIS: Infected abscess, right foot. OPERATIVE PROCEDURE PERFORMED: Incision and drainage of infected abscess, right foot. ANESTHESIA: Local only, totaling 5 mL of 1% lidocaine plain. HEMOSTASIS: None. PATHOLOGY: None. MATERIALS: 1/4-inch iodoform packing. INJECTABLES: None. CONDITION: The patient tolerated the anesthesia and the procedure well with no complication noted. JUSTIFICATION FOR PROCEDURE: The patient is a 21-year-old male who was admitted earlier today with cellulitis of the right lower extremity and an infected abscess on the dorsomedial aspect of his right midfoot. The abscess was approximately 1 cm in diameter and was raised above the skin as a large pustule up to 5 mm above the normal skin line. Based on the patient's history of scratching his foot with dirty nails by itching that was likely brought on either by eczema or a fungal infection . The patient has developed a significant pustule, which appears to tunnel subcutaneously a short distance from the center in multiple directions. The patient requires incision and drainage and flushing out of the affected area as soon as possible. This was explained to the patient, and the patient agreed to the procedure. Written consent was obtained, and the patient signed the consent with a witness present and was placed in the patient's chart. DESCRIPTION OF PROCEDURE: The right foot was swabbed with alcohol swab around the site of the abscess, and I injected 5 mL of 1% lidocaine plain just proximal to the abscess in a V-block formation achieving local anesthesia at the site. The patient's right foot was then scrubbed with a Betadine scrub in the usual aseptic manner, and a 1 to 1.5 cm linear incision was made directly over the area of the abscess and deepened through the skin to the subcutaneous layer. Immediate release of a large amount of purulent drainage, and necrotized fat and subcutaneous tissue were seen with very light exsanguination about the surgical site. The area was flushed with normal sterile saline mixed with a small amount of povidone-iodine solution. Flushing was done using a 30 mL syringe with a pulse technique. The area was then dried and re-examined and was probed using sterile instrumentation for any tunneling. Tunneling was limited to the subcutaneous layer and ranged in all directions up to 1.5 cm. The area was exsanguinated repeatedly until it was verified that there was no remaining purulent drainage. The area was then copiously flushed with normal sterile saline. A total of 60 mL of normal sterile saline mixed with small amount of povidone-iodine solution was used to flush out the abscess area. Quarter-inch iodoform packing was used after the area was dried to pack the wound, and this was covered with 4 x 4 gauze and secured with Kerlix roll and Cristian bandage. The estimated blood loss in this procedure was no more than 10 mL. Swab cultures were taken just prior to packing the wound, and they were taken at the deepest part of the incision site, subcutaneous tunnel. The patient tolerated the procedure and anesthesia well with no complications noted, and the patient will tentatively be planned for discharge tomorrow. He is okay to discharge from Podiatry standpoint provided that his labs continued to be unremarkable and that the drainage should be very minimal at the dressing change tomorrow. Wound care orders have been entered. Dressing change will be done. The packing will be pulled tomorrow prior to the patient being discharged, and the patient is to follow up with me in my office next week. He should call for an appointment or should be made for him, and the patient does have my contact information. MITUL PALOMARES /[id number]
== END 2017-09-09 11:00 | disposition home or self-care (01) | DRG 364 ==
LOC: MW.ED 08:33 → MW.MS 12:07
PROVIDERS: ADMIT Internal Medicine; ATTEND Internal Medicine
PROC: 0J9Q0ZZ Drainage of Right Foot Subcutaneous Tissue and Fascia, Open Approach (ICD-10-PCS; principal; 2017-09-08)
DX: L02.611 Cutaneous abscess of right foot (principal); L03.115 Cellulitis of right lower limb; B35.3 Tinea pedis; F17.220 Nicotine dependence, chewing tobacco, uncomplicated; Z88.1 Allergy status to other antibiotic agents; Z88.0 Allergy status to penicillin; L30.9 Dermatitis, unspecified
CPT/HCPCS: 36415; 80048; 80053; 83605; 85025; 87070; 87075; 87077; 87186; 87220; 96360; 96372; 99284-25; A9270-GY; J1885; J2930; J3370; J7040; J7050